=== PATIENT | male | born 1960 | race Caucasian/White ===

== ENCOUNTER 2017-04-28 07:49 | Outpatient (CLI) | payer OTHER | END 2017-04-28 07:50 | disposition home or self-care (01) | LOC: BICMRI 07:49 | PROVIDERS: ATTEND Family Medicine | DX: Z01.818 Encounter for other preprocedural examination (principal); M51.16 Intervertebral disc disorders with radiculopathy, lumbar region | CPT/HCPCS: 70210; 72148 ==

== ENCOUNTER 2020-06-12 15:28 | Outpatient (CLI) | payer OTHER ==
--- NOTE | 2020-06-12 16:14 | CT ---
CT PULMONARY LUNG SCAN WITHOUT IV CONTRATS: Date: 06/12/2020 INDICATION: 59-year-old male with history of 1 pack/day for 30 years. COPD. Shortness of breath of 6 months. Pers onal history of nicotine dependence. COMPARISON: Chest radiograph dated 08/23/2014. FINDINGS: There is mild ectasia of the ascending aorta measuring 3.4 cm. There are coronary artery thoracic aor tic calcifications. No definite enlarged mediastinal or axillary lymphadenopathy is evident. Visualiz ed upper abdomen demonstrates normal appearing adrenal glands. There is scattered degenerative and osteoarthritic change. There is a spiculated nodule within the left lower lobe on image 98 of series 3 measuring 1.2 cm with some surrounding scarring and mild adjacent bronchiectasis. There is a subpleural ground-glass air s pace opacity within the right lower lobe on image 142 of series 3. There is scattered centrilobular and paracentral emphysema. There is pleural and parenchymal scarring involving both lung apices. There is mild scarring within the posterior right upper lobe. No pleural effusion is demonstrated. IMPRESSION: Lung-RADS Category 4 - Suspicious finding requiring clinical evaluation. RECOMMENDATION: Pulmonary consultation advised to determine direction of further evaluation. There is a spiculated pu lmonary nodule within the left lower lobe, some of which may be related to scarring as there is some circatricial reaction surrounding this lesion. Malignancy within this location cannot be entirely exc luded. PET/CT may be helpful for further evaluation. Ground-glass subpleural air space opacity within the right lower lobe may reflect pulmonary infiltrat e. Recommend correlation for any symptoms and signs of infection. Short-term follow-up CT evaluation in 6-8 weeks may be helpful to document resolution. Category S: Moderate to severe emphysema; mild ectasia of the ascending aorta. CODE T. POS: [facility]
== END 2020-06-12 15:29 | disposition home or self-care (01) ==
LOC: BICCT 15:28
PROVIDERS: ATTEND Family Medicine
DX: Z12.2 Encounter for screening for malignant neoplasm of respiratory organs (principal); F17.200 Nicotine dependence, unspecified, uncomplicated; J43.2 Centrilobular emphysema; I70.0 Atherosclerosis of aorta; R91.1 Solitary pulmonary nodule; R91.8 Other nonspecific abnormal finding of lung field
CPT/HCPCS: 71271

== ENCOUNTER 2020-07-07 09:02 | Outpatient (CLI) | payer OTHER ==
--- NOTE | 2020-07-07 13:14 | PET ---
Radionucleotide PET scan with CT attenuation correction HISTORY: Solitary pulmonary nodule. COMPARISON: CT chest 06/12/2020. FINDINGS: Physiologic uptake of radiotracer is present throughout the enteric system and along each u rinary tract. Particular attention paid to the area of spiculation in the left lower lobe on recent CT chest screening exam. No abnormal uptake. The area of nodular infiltrate at the right lung base on the prior study is no longer evident. No abnormal uptake within the mediastinum or abdomen. There is constipation throughout the arterial structures. Emphysematous changes of the lungs are agai n demonstrated. IMPRESSION : No evidence of malignancy. Given the current negative PET, short-term follow-up CT chest is NOT neces cristobal. Suggest routine screening. Emphysema. Atherosclerosis.
== END 2020-07-07 09:03 | disposition home or self-care (01) ==
LOC: PET 09:02
PROVIDERS: ATTEND Family Medicine
DX: R91.1 Solitary pulmonary nodule (principal); J43.9 Emphysema, unspecified; I70.90 Unspecified atherosclerosis
CPT/HCPCS: 78815; A9552

== ENCOUNTER 2020-09-08 13:57 | Outpatient (CLI) | payer OTHER | END 2020-09-08 13:58 | disposition home or self-care (01) | LOC: BICMRI 13:57 | PROVIDERS: ATTEND Family Medicine | DX: M51.16 Intervertebral disc disorders with radiculopathy, lumbar region (principal); M47.26 Other spondylosis with radiculopathy, lumbar region | CPT/HCPCS: 72148 ==